=== PATIENT | female | born 1995 | race Caucasian/White ===

== ENCOUNTER 2016-09-21 15:48 | Emergency (ER) | payer OTHER ==
[~2016-09-21] VITALS: Ht 170.2 cm; Wt 74.3 kg
[~2016-09-21 15:48] MED LIST: LANTUS 3 M100 UNITS1 SC; NOVOLOG PE100 UNITS/ SC; ZOFRAN8 MG PO
[2016-09-21 16:17] LABS: POINT-OF-CARE METER ID UU13113778
[2016-09-21 16:49] LABS: EOSINOPHIL (%) 0 % (0-5); HEMATOCRIT 37.5 % (36.0-46.0); IMMATURE GRANULOCYTE (%) 0.2 % (0.0-0.7); INSTRUMENT ABS NEUTROPHIL CT 6.3 K/uL; MCH 29.2 PG (29.0-34.0); MCHC 32.8 G/DL (30.0-36.0); MCV 89.1 FL (83-99); MEAN PLAT.VOLUME 10.1 uM^3 (9.5-12.4); MONOCYTE (%) 12.8 % (3-12); MONOCYTE COUNT 1.1 K/uL (0-0.8); NEUTROPHIL (%) 75.3 % (45-76); NEUTROPHIL COUNT 6.3 K/uL (1.8-6.4); PLATELET COUNT 195 K/uL (156-360); RBC DIS.WIDTH-CV 12.8 % (11.8-14.6); RBC DIS.WIDTH-SD 41.3 % (39-53); RED BLOOD COUNT 4.21 M/uL (3.80-5.20); WHITE BLOOD COUNT 8.4 K/uL (4.1-10.2)
[2016-09-21 16:56] LABS: CHLORIDE 99 mEq/L (99-109); POTASSIUM 4.2 mEq/L (3.7-5.4); SODIUM 133 mEq/L (136-147)
[2016-09-21 16:59] LABS: ANION GAP 9 MEQ/L (2-14)
[2016-09-21 17:02] LABS: GFR ESTIMATE (CALCULATED) > 59 mL/min/
[2016-09-21 17:03] LABS: UREA NITROGEN (BUN) 14 mg/dL (9-23)
[2016-09-21 17:06] LABS: GLUCOSE 474 mg/dL (70-99)
[2016-09-21 18:49] LABS: ADD MIUA? YES; BILIRUBIN NEGATIVE; BLOOD MODERATE; COLOR STRAW ((YELLOW)); GLUCOSE (STRIP) >=500; KETONES 20; LEUKOCYTES NEGATIVE; NITRITE NEGATIVE; PROTEIN (STRIP) NEGATIVE; SPECIFIC GRAVITY 1.032 (1.000-1.030); UROBILINOGEN 0.2 MG/DL (0.2-1.0)
[2016-09-21 18:53] LABS: BACTERIA NONE SEEN /HPF; EPITHELIAL CELLS RARE /HPF; MUCUS TRACE /LPF; RED BLOOD CELLS 0-5 /HPF (0-5); UCUL ADDED? NO; WHITE BLOOD CELLS 0-5 /HPF (0-5)
[2016-09-21 19:16] LABS: TOTAL BILIRUBIN 0.3 mg/dL (0.0-1.0)
[2016-09-21 19:17] LABS: ALKALINE PHOSPHATASE 64 IU/L (3-129)
[2016-09-21 19:20] LABS: DIRECT BILIRUBIN 0.1 mg/dL (0.0-0.3)
[2016-09-21 19:57] LABS: POINT-OF-CARE METER ID UU14100415
[2016-09-21 20:07] LABS: INTERNAL CONTROL VALID? YES
[2016-09-21 21:08] VITALS: BP 121/87
[2016-09-21 21:09] LABS: POINT-OF-CARE METER ID UU14100415
== END 2016-09-21 21:10 | disposition home or self-care (01) ==
LOC: EME 15:48
PROVIDERS: Physician Assistant
DX: E10.65 Type 1 diabetes mellitus with hyperglycemia (principal); N76.0 Acute vaginitis; Z79.4 Long term (current) use of insulin
CPT/HCPCS: 80048; 80076; 81003; 82948; 83605; 84703; 85025; 87210; 99281; 99285; J7030